=== PATIENT | female | born 1980 | race American Indian/Alaskan Native ===

== ENCOUNTER 2019-12-31 09:38 | Outpatient (CLI) | payer OTHER ==
--- NOTE | 2020-01-06 09:31 | Mammography Report ---
DIGITAL SCREENING MAMMOGRAM WITH TOMOSYNTHESIS WITH CAD, 01/05/2020 INDICATION: Routine Screening Mammography. TECHNIQUE: Digital bilateral 2D and 3D mammography with tomosynthesis was obtained in the craniocau ben and mediolateral oblique projections. Computer-Aided Detection (CAD) analysis was used for inter pretation of this study. COMPARISON: None available. Baseline screening. FINDINGS: Breast Density: There are scattered areas of fibroglandular density. There is no evidence of dominant mass, suspicious calcifications or architectural distortion in eithe r breast. 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 IMPRESSION: No mammographic evidence of malignancy. Benign finding as above. Follow up recommendation: Routine yearly BI-RADS Category 2: Benign. A "normal" or negative report should not discourage follow up or biopsy of a clinically significant f inding. A written summary of these findings will be mailed to the patient. The patient will be entered into a mammography reporting system which will generate a reminder letter for the patient's next appointmen t at the appropriate interval. The [employer] recommends yearly mammograms starting at age 40 and continuing as l osvaldo as a woman is in good health. Breast MRI is recommended for women with an approximate 20-25% or greater lifetime risk of breast cancer, including women with a strong family history of breast or ova radhames cancer or who have been treated for Hodgkin's disease. Signer Name: Malachi Zapata MD Signed: 01/06/2020 9:26 AM Workstation Name: [id number]
== END 2019-12-31 09:39 | disposition home or self-care (01) ==
LOC: SPVWC 09:38
PROVIDERS: ATTEND Internal Medicine
DX: Z12.31 Encounter for screening mammogram for malignant neoplasm of breast (principal)
CPT/HCPCS: 77063; 77067

== ENCOUNTER 2021-09-06 16:22 | Emergency (ER) | payer OTHER ==
[2021-09-06 16:58] VITALS: BP 154/67
--- NOTE | 2021-09-07 17:50 | Electrocardiograph Report ---
[facility] Test Date: 2021-09-06 Test Time: 17:02:12 Pat Name: AMBROSIO SILVEIRA Department: Room: Gender: F [employer]: MERI : 1980 Requested By: CARRI BURKETT Order Number: [id number] Reading MD: Clifford Flores Measurements Intervals [place] Rate: 80 P: 64 [place]: 145 QRS: 38 QRSD: 80 T: 37 QT: 392 QTc: 451 Interpretive Statements Sinus rhythm Low voltage, precordial leads No previous ECG available for comparison Electronically Signed On 09-07-2021 17:50:33 EDT by Clifford Flores
== END 2021-09-07 01:10 | disposition left against medical advice (07) ==
LOC: ED 16:22
DX: R07.9 Chest pain, unspecified (principal); Z53.21 Procedure and treatment not carried out due to patient leaving prior to being seen by health care provider
CPT/HCPCS: 93005